=== PATIENT | male | born 1950 | race Two or more races ===

== ENCOUNTER 2020-01-21 17:12 | Emergency (ER) | payer OTHER ==
[~2020-01-21] VITALS: Ht 175.3 cm; Wt 88.0 kg
[2020-01-21 17:20] VITALS: BP 143/93
[2020-01-21] MEDS ORDERED: ACETAMINOPHEN WITH CODEINE 300/30MG TABLET PO STA (17:47)
[2020-01-21] MEDS ORDERED: KETOROLAC 15MG/ML VIAL IM ONE (18:00)
== END 2020-01-21 18:25 | disposition home or self-care (01) ==
LOC: ER 17:12
DX: M54.31 Sciatica, right side (principal); E78.00 Pure hypercholesterolemia, unspecified; I10 Essential (primary) hypertension
CPT/HCPCS: 96372; 99283; J1885